=== PATIENT | female | born 1970 | race American Indian/Alaskan Native ===

== ENCOUNTER 2016-11-28 01:00 | Observation (INO) | payer MEDICARE, MEDICAID ==
[2016-11-28 01:06] VITALS: BMI 33.0
[2016-11-28] MEDS ORDERED: HYDROmorphone 2 mg/ml ISec IM STA (01:14)
--- NOTE | 2016-11-28 01:38 | ED PDOC ---
Arrival/HPI - General Chief Complaint: Hip Pain Time Seen by Provider: 11/28/16 01:01 Historian: Patient - History of Present Illness Narrative History of Present Illness (Text): 11/28/16 01:34 Lisa Umaña is a 46 year old female who presents to the emergency department complaining of right hip pain following mechanical fall 3 days ago. States that she tripped and fell backward landing on right side of her back. Patient was able to bear weight on right leg and ambulate after the fall. Denies any head trauma or loss of consciousness. Denies any fever, chills, headache, dizziness, weakness/numbness to extremity, nausea, vomiting, diarrhea, urinary symptoms or any other complaints at this time. Time/Duration: Other (3 days prior ) Symptom Onset: Sudden Symptom Course: Unchanged Activities at Onset: Significant Context: Tripped Past Medical History - Provider Review Nursing Documentation Reviewed: Yes - Infectious Disease Hx of Infectious Diseases: None - Tetanus Immunization Tetanus Immunization: Unknown - Reproductive Menopause: Yes - Cardiac Hx Cardiac Disorders: No - Pulmonary Hx Respiratory Disorders: Yes Hx Asthma: Yes Hx Bronchitis: Yes - Neurological Hx Neurological Disorder: Yes Hx Seizures: Yes - HEENT Hx HEENT Disorder: No - Renal Hx Renal Disorder: No - Endocrine/Metabolic Hx Endocrine Disorders: No - Hematological/Oncological Hx Blood Disorders: Yes - Integumentary Hx Dermatological Disorder: No - Musculoskeletal/Rheumatological Hx Falls: No - Gastrointestinal Hx Gastrointestinal Disorders: Yes Hx Irritable Bowel: Yes - Genitourinary/Gynecological Hx Genitourinary Disorders: No Hx Reproductive Disorders: No - Psychiatric Hx Psychophysiologic Disorder: No Hx Substance Use: Yes (marijuana) - Surgical History Hx Section: Yes - Anesthesia Hx Anesthesia: Yes - Suicidal Assessment Feels Threatened In Home Enviroment: No Family/Social History - Physician Review Nursing Documentation Reviewed: Yes Family/Social History: No Known Family HX Smoking Status: Former Smoker Hx Alcohol Use: No Hx Substance Use: Yes (marijuana) Substance used: marijuiana Allergies/Home Meds Allergies/Adverse Reactions: Allergies No Known Allergies Allergy (Verified 07/04/16 21:23) Home Medications: Home Meds Medication Instructions Recorded Confirmed Darunavir Ethanolate [Prezista] 600 mg PO BID 08/24/14 11/28/16 Ranitidine HCl 150 mg PO BID 08/24/14 11/28/16 Valacyclovir HCl [Valacyclovir] 1 gm PO DAILY 08/24/14 11/28/16 Raltegravir Potassium [Isentress] 400 mg PO BID 05/30/16 11/28/16 Ritonavir [Norvir] 100 mg PO BID 05/30/16 11/28/16 levETIRAcetam [Keppra] 500 mg PO BID 05/30/16 11/28/16 Cyclobenzaprine [Cyclobenzaprine 10 mg PO BID 11/28/16 11/28/16 HCl] Meloxicam [Mobic] 15 mg PO DAILY 11/28/16 11/28/16 Montelukast [Singulair] 10 mg PO DAILY 11/28/16 11/28/16 Review of Systems - Physician Review All systems were reviewed & negative as marked: Yes - Review of Systems Constitutional: Normal. absent: Fatigue, Fevers Respiratory: Normal. absent: SOB, Cough, Sputum Cardiovascular: Normal. absent: Chest Pain Gastrointestinal: Normal. absent: Abdominal Pain, Diarrhea, Nausea, Vomiting Musculoskeletal: Other (right hip pain ). absent: Back Pain, Neck Pain Neurological: Normal. absent: Headache, Dizziness Psychiatric: Normal Physical Exam Vital Signs Temp Pulse Resp BP Pulse Ox 11/28/16 05:21 75 16 110/74 98 11/28/16 03:50 78 16 118/73 99 11/28/16 01:06 98.4 F 73 20 127/58 L 100 Medical Decision Making ED Course and Treatment: 11/28/16 01:39 Impression: A 46 year old female who presents to the emergency department complaining of right hip pain following mechanical fall 3 days ago. Plan: -- CT lower extremity -- Dilaudid -- Reassess and disposition Progress Notes: 11/28/16 03:05 CT Right Lower Extremity results reviewed: FINDINGS: Bones/joints: Multiple poorly demarcated foci of decreased attenuation are identified within the posterior lateral margin of the femoral head, findings suggesting avascular necrosis, without collapse. No acute fracture. No dislocation. Soft tissues: Unremarkable. IMPRESSION: Findings suggesting avascular necrosis, without collapse, as detailed above. No acute fracture. 11/28/16 03:06\ Case discussed with Dr. Palacio who is aware and agrees with the plan to observe patient at med/surg for aseptic necrosis of right hip. Accepts patient under service with on consult. - Lab Interpretations I have reviewed the lab results: Yes - RAD Interpretation Radiology Orders: 11/28/16 01:15 EXT LOWER W/O CONTRAST RIGHT [CT] Stat Dry Chain Worker: Radiologist - Medication Orders Current Medication Orders: Discontinued Medications Albuterol/Ipratropium (Duoneb 3 Mg/0.5 Mg (3 Ml) Ud) 3 ml IH [id number] [facility] Last Admin: 11/28/16 13:56 Dose: 3 ml Alprazolam (Xanax) 0.25 mg PO BID [facility] PRN Reason: Protocol Stop: 12/05/16 10:01 Last Admin: 11/28/16 17:58 Dose: 0.25 mg Budesonide (Pulmicort Respules) 0.25 mg IH [id number] [facility] Famotidine (Pepcid) 20 mg PO BID [facility] Famotidine (Pepcid) 40 mg PO HS [facility] Hydrochlorothiazide (Hydrodiuril) 25 mg PO DAILY [facility] Last Admin: 11/28/16 11:15 Dose: 25 mg Hydromorphone HCl (Dilaudid) 2 mg IM STAT STA Stop: 11/28/16 01:15 Last Admin: 11/28/16 01:24 Dose: 2 mg Re-Assess: [facility] Pain Assessment Document 11/28/16 02:24 YP (Rec: 11/28/16 03:33 [id number] [id number]) Pain Reassessment Is this a pain reassessment? Yes Sleep Is patient sleeping during reassessment? No Presence of Pain Presence of Pain Yes Hydromorphone HCl (Dilaudid) 2 mg IVP STAT STA Stop: 11/28/16 05:01 Last Admin: 11/28/16 05:06 Dose: 2 mg Hydromorphone HCl (Dilaudid) 0.5 mg IVP Q4H PRN PRN Reason: Pain, Mild (1-3) Ipratropium Raymond (Atrovent) 0.5 mg IH [id number] PRN PRN Reason: Shortness of Breath Levetiracetam (Keppra) 500 mg PO BID [facility] Last Admin: 11/28/16 17:58 Dose: 500 mg Montelukast Sodium (Singulair) 10 mg PO DAILY [facility] Last Admin: 11/28/16 11:15 Dose: 10 mg Darunavir Ethanolate [Prezista] 600 Mg (Home Med) 600 mg PO BID [facility] Last Admin: 11/28/16 18:00 Dose: Oxycodone/Acetaminophen (Percocet 5/325 Mg Tab) 1 tab PO Q4H PRN PRN Reason: Pain, moderate (4-7) Stop: 12/01/16 02:59 Last Admin: 11/28/16 08:36 Dose: 1 tab Re-Assess: COLIN Pain Assessment Document 11/28/16 09:36 DSZ (Rec: 11/28/16 10:48 DSZ [id number]) Pain Reassessment Is this a pain reassessment? Yes Sleep Is patient sleeping during reassessment? No Presence of Pain Presence of Pain Yes Pain Scale Used Pain Scale Used Numeric Location Left, Right or Bilateral Right Pain Location Body Site Thigh Description Description Constant Intensity of Pain at present 4 Acceptable Level of Pain 4 Pain Behavior Withdrawal from Touch Aggravating Factors Contant Alleviating Factors/Management Medication Techniques Alleviating Factors Medication Potassium Chloride (K-Dur 20 Meq Er Tab) 40 meq PO STAT STA Stop: 11/28/16 05:11 Last Admin: 11/28/16 05:20 Dose: 40 meq Raltegravir (Isentress) 400 mg PO BID [facility] Last Admin: 11/28/16 17:58 Dose: 400 mg Ritonavir (Norvir) 100 mg PO BID [facility] Last Admin: 11/28/16 17:58 Dose: 100 mg Tramadol HCl (Ultram) 50 mg PO Q6H PRN PRN Reason: moderate to severe pain Valacyclovir HCl (Valtrex) 1 gm PO DAILY [facility] PRN Reason: Protocol Last Admin: 11/28/16 11:15 Dose: 1 gm - Scribe Statement The provider has reviewed the documentation as recorded by the Dinesh Bledsoe Provider Attestation: Provider Scribe Attestation: All medical record entries made by the iDnesh were at my direction and personally dictated by me. I have reviewed the chart and agree that the record accurately reflects my personal performance of the history, physical exam, medical decision making, and the department course for this patient. I have also personally directed, reviewed, and agree with the discharge instructions and disposition. Disposition/Present on Arrival - Present on Arrival Any Indicators Present on Arrival: No History of DVT/PE: No History of Uncontrolled Diabetes: No Urinary Catheter: No History of Decub. Ulcer: No History Surgical Site Infection Following: None - Disposition Have Diagnosis and Disposition been Completed?: Yes Diagnosis: Avascular necrosis of bone of hip Disposition: HOSPITALIZED Disposition Time: 05:00 Condition: GOOD
--- NOTE | 2016-11-28 02:30 | CT ---
EXAM: CT Right Lower Extremity Without Intravenous Contrast, Hip CLINICAL HISTORY: 46 years old, female; Pain; Hip; Right; Additional info: Rt hip pain TECHNIQUE: Axial computed tomography images of the right hip without intravenous contrast. This CT exam was performed using one or more of the following dose reduction techniques: automated exposure control, adjustment of the mA and/or kV according to patient size, and/or use of iterative reconstruction technique. Coronal and sagittal reformatted images were created and reviewed. COMPARISON: MR - ANKLE W/ W/O CONTRAST [facility] 01/04/2016 8:36:46 AM FINDINGS: Bones/joints: Multiple poorly demarcated foci of decreased attenuation are identified within the posterior lateral margin of the femoral head, findings suggesting avascular necrosis, without collapse. No acute fracture. No dislocation. Soft tissues: Unremarkable. IMPRESSION: Findings suggesting avascular necrosis, without collapse, as detailed above. No acute fracture.
[2016-11-28] MEDS ORDERED: Oxycodone/Acetaminophen 5/325 mg Tab PO PRN (02:58)
[2016-11-28 03:51] LABS: BASO # 0.01 K/mm3 (0.0-2.0); BASO % 0.1 % (0.0-3.0); EOS # 0.2 (0.0-0.7); EOS % 2.2 % (1.5-5.0); GRAN # 7.76 (1.4-6.5); GRAN % 79.4 % (50.0-68.0); HEMOGLOBIN 10.4 gm/dL (12.0-16.0); LYMPH # 1.1 (1.2-3.4); LYMPH % 11.7 % (22.0-35.0); MEAN CELL VOLUME 74.4 fL (80.0-105.0); MEAN CORPUSCULAR HGB CONC 32.2 g/dl (31.0-37.0); MEAN PLATELET VOLUME 9.5 fl (7.0-11.0); MONO # 0.6 (0.1-0.6); MONO % 6.6 % (1.0-6.0); PLATELET COUNT 323 10^3/uL (120.0-450.0); RBC 4.34 10^6/uL (3.5-6.1); RED CELL DISTRIBUTION WIDTH 16.3 % (11.5-14.5); WHITE BLOOD COUNT 9.8 10^3/ul (4.5-11.0)
[2016-11-28 04:53] LABS: ALB/GLOB RATIO 1.1 (1.1-1.8); ALBUMIN 4.2 g/dL (3.0-4.8); ALT/SGPT 21 U/L (7-56); AST/SGOT 24 U/L (15-39); BLOOD UREA NITROGEN 8 mg/dL (7-21); CALCIUM 9.3 mg/dL (8.4-10.5); GFR AFRICAN-AMERICAN > 60; GFR NON-AFRICAN AMERICAN > 60
[2016-11-28] MEDS ORDERED: HYDROmorphone 2 mg/ml ISec IVP STA (05:00)
[2016-11-28] MEDS ORDERED: Potassium Chloride 20 mEq ER Tab PO STA (05:10)
[2016-11-28 06:16] VITALS: PULSE 70; RESP 20; TEMP 98.2
[2016-11-28] MEDS ORDERED: Albuterol HFA 90 mcg/actuation (8 g) IH PRN (08:47)
[2016-11-28] MEDS ORDERED: Ipratropium 0.02% Inhal Soln (0.5 mg/2.5 ml) UD IH PRN (08:47)
[2016-11-28] MEDS ORDERED: HYDROmorphone 0.5 mg/0.5 ml ISec IVP PRN (08:54)
[2016-11-28 09:29] VITALS: BP 122/70; O2SAT 100
[2016-11-28] MEDS: DARUNAVIR ETHANOLATE 600 MG PO SCH ×2 (10:58→18:00)
--- NOTE | 2016-11-28 13:12 | RAD ---
PROCEDURE: Radiographs of the pelvis and right hip joint INDICATION: COMPARISON: CT scan performed the same day FINDINGS: AP view of the pelvis and AP and frog lateral views of the right hip were obtained. There is mild flattening of the right femoral head with subarticular sclerosis and subarticular cystic changes. There is moderate flattening and deformity in the left femoral head with subarticular sclerosis and cystic changes. There is also mild degenerative osteoarthrosis in both hip joints. The periarticular soft tissues are unremarkable. 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
[2016-11-28] MEDS ORDERED: Albuterol-Ipratrop 3 mg / 0.5 (3 ml) UD IH SCH (14:00)
[2016-11-28] MEDS ORDERED: Budesonide 0.25 mg/2 ml Inhal Susp UD IH SCH (20:00)
--- NOTE | 2016-11-29 10:48 | CP.PCM.HP ---
History of Present Illness - History of Present Illness History of Present Illness: dictating h/p for 11/28/16 Lisa Umaña is a 46 year old female who presents to the emergency department complaining of right hip pain following mechanical fall 3 days ago. States that she tripped and fell backward landing on right side of her back. Patient was able to bear weight on right leg and ambulate after the fall. Denies any head trauma or loss of consciousness. Denies any fever, chills, headache, dizziness, weakness/numbness to extremity, nausea, vomiting, diarrhea, urinary symptoms or any other complaints at this time. Present on Admission - Present on Admission Any Indicators Present on Admission: No Review of Systems - Constitutional Constitutional: As Per HPI - EENT Eyes: As Per HPI Ears: As Per HPI Nose/Mouth/Throat: As Per HPI - Breasts Breasts: As Per HPI - Cardiovascular Cardiovascular: As Per HPI - Respiratory Respiratory: As Per HPI - Gastrointestinal Gastrointestinal: As Per HPI - Musculoskeletal Musculoskeletal: Abnormal Gait, Arthralgias, Limited Range of Motion - Integumentary Integumentary: As Per HPI - Neurological Neurological: As Per HPI - Psychiatric Psychiatric: As Per HPI - Endocrine Endocrine: As Per HPI - Hematologic/Lymphatic Hematologic: As Per HPI Past Patient History - Infectious Disease Hx of Infectious Diseases: None - Tetanus Immunizations Tetanus Immunization: Unknown - Past Social History Smoking Status: Never Smoked - CARDIAC Hx Cardiac Disorders: No - PULMONARY Hx Respiratory Disorders: Yes Hx Asthma: Yes Hx Bronchitis: Yes - NEUROLOGICAL Hx Neurological Disorder: Yes Hx Seizures: Yes - HEENT Hx HEENT Problems: No - RENAL Hx Chronic Kidney Disease: No - ENDOCRINE/METABOLIC Hx Endocrine Disorders: No - HEMATOLOGICAL/ONCOLOGICAL Hx Blood Disorders: Yes - INTEGUMENTARY Hx Dermatological Problems: No - MUSCULOSKELETAL/RHEUMATOLOGICAL Hx Falls: Yes - GASTROINTESTINAL Hx Gastrointestinal Disorders: Yes - GENITOURINARY/GYNECOLOGICAL Hx Genitourinary Disorders: No - PSYCHIATRIC Hx Psychophysiologic Disorder: No Hx Substance Use: Yes (smoke marijuana) - SURGICAL HISTORY Hx Surgeries: Yes - ANESTHESIA Hx Anesthesia: Yes Meds Allergies/Adverse Reactions: Allergies Allergy/AdvReac Type Severity Reaction Status Date / Time No Known Allergies Allergy Verified 07/04/16 21:23 Physical Exam - Constitutional Appears: Well - Head Exam Head Exam: ATRAUMATIC, NORMAL INSPECTION, NORMOCEPHALIC - Eye Exam Eye Exam: EOMI, Normal appearance, PERRL Pupil Exam: NORMAL ACCOMODATION, PERRL - ENT Exam ENT Exam: Mucous Membranes Moist, Normal Exam - Neck Exam Neck exam: Positive for: Normal Inspection - Respiratory Exam Respiratory Exam: Clear to Auscultation Bilateral, NORMAL BREATHING PATTERN - Cardiovascular Exam Cardiovascular Exam: REGULAR RHYTHM - GI/Abdominal Exam GI & Abdominal Exam: Normal Bowel Sounds, Soft. absent: Tenderness - Rectal Exam Rectal Exam: NORMAL INSPECTION - Exam Exam: Circumcision, NORMAL INSPECTION External exam: NORMAL EXTERNAL EXAM Speculum exam: NORMAL SPECULUM EXAM Bimanual exam: NORMAL BIMANUAL EXAM - Extremities Exam Extremities exam: Positive for: normal inspection Additional comments: rt hip rom decrease , area tender , connot bear wt - Back Exam Back exam: NORMAL INSPECTION - Neurological Exam Neurological exam: Alert, CN II-XII Intact, Normal Gait, Oriented x3, Reflexes Normal - Psychiatric Exam Psychiatric exam: Normal Affect, Normal Mood - Skin Skin Exam: Dry, Intact, Normal Color, Warm Results - Vital Signs Recent Vital Signs: Last Vital Signs Temp 98.2 F 11/28/16 07:30 Pulse 70 11/28/16 07:30 Resp 20 11/28/16 07:30 BP 122/70 11/28/16 07:30 Pulse Ox 100 11/28/16 07:30 - Labs Result Diagrams: 11/28/16 03:40 11/28/16 04:11 Labs: Laboratory Results - last 24 hr 11/28/16 10:00 Magnesium 1.9 Assessment & Plan (1) HIV (human immunodeficiency virus infection) Status: Acute (2) HIV (human immunodeficiency virus infection) Status: Acute (3) Avascular necrosis of bone of hip Assessment and Plan: rt hip Status: Acute (4) Fall (on) (from) other stairs and steps, initial encounter Status: Acute - Assessment and Plan (Free Text) Assessment: Lisa Umaña is a 46 year old female who presents to the emergency department complaining of right hip pain following mechanical fall 3 days ago. States that she tripped and fell backward landing on right side of her back. Patient was able to bear weight on right leg and ambulate after the fall. Denies any head trauma or loss of consciousness. Denies any fever, chills, headache, dizziness, weakness/numbness to extremity, nausea, vomiting, diarrhea, urinary symptoms or any other complaints at this time. Plan: dr Douglas ortho consult called , no surgery as per ortho .pt need good pt . so pt av. and treatment called , pt want to go ama , education done in the presence of boy friend , pt informed , she can fall and can have fractures , but still she want to go home AMA .f/u pcp , pt and ortho as out pt
--- NOTE | 2016-12-01 22:09 | CP.PCM.DIS ---
Provider - Provider Date of Admission: 11/28/16 02:57 Attending physician: Madie Palacio MD Primary care physician: Madie Palacio MD Time Spent in preparation of Discharge (in minutes): 1 Diagnosis - Discharge Diagnosis (1) HIV (human immunodeficiency virus infection) Status: Acute (2) HIV (human immunodeficiency virus infection) Status: Acute (3) Avascular necrosis of bone of hip Status: Acute (4) Fall (on) (from) other stairs and steps, initial encounter Status: Acute Hospital Course - Lab Results Lab Results: Most Recent Lab Values WBC 9.8 10^3/ul (4.5-11.0) D 11/28/16 03:40 RBC 4.34 10^6/uL (3.5-6.1) 11/28/16 03:40 Hgb 10.4 gm/dL (12.0-16.0) L 11/28/16 03:40 Hct 32.3 % (36.0-48.0) L 11/28/16 03:40 MCV 74.4 fL (80.0-105.0) L 11/28/16 03:40 MCH 24.0 pg (25.0-35.0) L 11/28/16 03:40 MCHC 32.2 g/dl (31.0-37.0) 11/28/16 03:40 RDW 16.3 % (11.5-14.5) H 11/28/16 03:40 Plt Count 323 10^3/uL (120.0-450.0) 11/28/16 03:40 MPV 9.5 fl (7.0-11.0) 11/28/16 03:40 Gran % 79.4 % (50.0-68.0) H 11/28/16 03:40 Lymph % (Auto) 11.7 % (22.0-35.0) L 11/28/16 03:40 Page % (Auto) 6.6 % (1.0-6.0) H 11/28/16 03:40 Eos % (Auto) 2.2 % (1.5-5.0) 11/28/16 03:40 Baso % (Auto) 0.1 % (0.0-3.0) 11/28/16 03:40 Gran # 7.76 (1.4-6.5) H 11/28/16 03:40 Lymph # 1.1 (1.2-3.4) L 11/28/16 03:40 Page # 0.6 (0.1-0.6) 11/28/16 03:40 Eos # 0.2 (0.0-0.7) 11/28/16 03:40 Baso # 0.01 K/mm3 (0.0-2.0) 11/28/16 03:40 Sodium 141 mmol/L (132-148) 11/28/16 04:11 Potassium 3.3 mmol/L (3.6-5.0) L 11/28/16 04:11 Chloride 103 mmol/L (95-110) 11/28/16 04:11 Carbon Dioxide 27 mmol/L (21-33) 11/28/16 04:11 Anion Gap 14 (10-20) 11/28/16 04:11 BUN 8 mg/dL (7-21) 11/28/16 04:11 Creatinine 0.8 mg/dL (0.5-1.4) 11/28/16 04:11 Est GFR ( Amer) > 60 11/28/16 04:11 Est GFR (Non-Af Amer) > 60 11/28/16 04:11 Random Glucose 132 mg/dL (70-110) H 11/28/16 04:11 Calcium 9.3 mg/dL (8.4-10.5) 11/28/16 04:11 Magnesium 1.9 mg/dL (1.7-2.2) 11/28/16 10:00 Total Bilirubin 0.4 mg/dL (0.2-1.3) 11/28/16 04:11 AST 24 U/L (15-39) 11/28/16 04:11 ALT 21 U/L (7-56) 11/28/16 04:11 Alkaline Phosphatase 163 U/L (38-133) H 11/28/16 04:11 Total Protein 7.9 g/dL (5.8-8.3) 11/28/16 04:11 Albumin 4.2 g/dL (3.0-4.8) 11/28/16 04:11 Globulin 3.8 gm/dL 11/28/16 04:11 Albumin/Globulin Ratio 1.1 (1.1-1.8) 11/28/16 04:11 - Hospital Course Hospital Course: pt left AMA same day , see my H/P Discharge Exam - Head Exam Head Exam: ATRAUMATIC, NORMAL INSPECTION, NORMOCEPHALIC Discharge Plan - Follow Up Plan Condition: GOOD Disposition: AGAINST MEDICAL ADVICE Instructions: Hypokalemia (GEN), Chronic Pain (GEN), HIV Infection (GEN), Opioid Pain Management (DC), Hip Pain (GEN) Referrals: Madie Palacio MD [Primary Care Provider] - Herberth Starr MD [Staff Provider] -
== END 2016-11-28 18:32 | disposition left against medical advice (07) ==
LOC: ED 01:00 → ERH 02:57 → 5RSO 05:46
PROVIDERS: ADMIT Internal Medicine; ATTEND Internal Medicine
DX: M87.9 Osteonecrosis, unspecified (principal); W01.0XXA Fall on same level from slipping, tripping and stumbling without subsequent striking against object, initial encounter; Z21 Asymptomatic human immunodeficiency virus [HIV] infection status; J45.909 Unspecified asthma, uncomplicated; K58.9 Irritable bowel syndrome, unspecified; Z79.1 Long term (current) use of non-steroidal anti-inflammatories (NSAID); Z79.899 Other long term (current) drug therapy; R56.9 Unspecified convulsions; F12.90 Cannabis use, unspecified, uncomplicated; Z87.891 Personal history of nicotine dependence; Y92.9 Unspecified place or not applicable
CPT/HCPCS: 73502; 73700; 80053; 83735; 85025; 94640; 96372; 96374; 99284; G0378; J1170

== ENCOUNTER 2018-06-03 10:17 | Emergency (ER) | payer MEDICARE, MEDICAID ==
[2018-06-03 10:46] VITALS: BMI 29.3
[2018-06-03 10:52] VITALS: PULSE 72; RESP 18; TEMP 98.4; O2SAT 98
[2018-06-03 10:53] VITALS: BP 130/81
--- NOTE | 2018-06-03 11:18 | ED PDOC ---
Arrival/HPI - General Chief Complaint: Cough, Cold, Congestion Time Seen by Provider: 06/03/18 10:51 Historian: Patient - History of Present Illness Narrative History of Present Illness (Text): 06/03/18 11:22 A 48 year old female, whose past medical history includes asthma, presents to the emergency department complaining of shortness of breath starting 04:00 last night. Patient reports also experiencing chest tightness and consistent cough. Notes yesterday feeling normal, however upon waking up at 04:00 began experiencing symptoms. She mentions she usually takes Aspirin prior to going to sleep however last night she did not do so. Upon waking up, she took Aspirin, felt some relief, and went back to sleep. However patient awoke again with the same symptoms. Also, patient mentions she had a cold 3 weeks ago and was presc ribed Z-pack and prednisone for asthma. currently she is concerned symptoms may be due to asthma exacerbation however is uncertain and decided to come to the ER for evaluation. Patient denies any chest pain, bilateral leg swelling, or any other complaints at this time. PMD: Dr. Palacio Past Medical History - Provider Review Nursing Documentation Reviewed: Yes - Infectious Disease Hx of Infectious Diseases: None - Tetanus Immunization Tetanus Immunization: Unknown - Cardiac Hx Hypertension: Yes - Pulmonary Hx Respiratory Disorders: Yes Hx Asthma: Yes Hx Bronchitis: Yes - Neurological Hx Neurological Disorder: Yes Hx Seizures: Yes - HEENT Hx HEENT Disorder: No - Renal Hx Renal Disorder: No - Endocrine/Metabolic Hx Endocrine Disorders: No - Hematological/Oncological Hx Blood Disorders: Yes - Integumentary Hx Dermatological Disorder: No - Musculoskeletal/Rheumatological Hx Falls: No - Gastrointestinal Hx Gastrointestinal Disorders: Yes Hx Irritable Bowel: Yes - Genitourinary/Gynecological Hx Genitourinary Disorders: No Hx Reproductive Disorders: No - Psychiatric Hx Psychophysiologic Disorder: No Hx Substance Use: Yes (marijuana) - Surgical History Hx Section: Yes - Anesthesia Hx Anesthesia: Yes - Suicidal Assessment Feels Threatened In Home Enviroment: No Family/Social History - Physician Review Nursing Documentation Reviewed: Yes Family/Social History: No Known Family HX Smoking Status: Former Smoker Hx Alcohol Use: No Hx Substance Use: Yes (marijuana) Substance used: marijuiana Allergies/Home Meds Allergies/Adverse Reactions: Allergies No Known Allergies Allergy (Verified 07/04/16 21:23) Home Medications: Home Meds Medication Instructions Recorded Confirmed RX: Darunavir Ethanolate [Prezista] 600 mg PO BID 08/24/14 11/28/16 RX: Ranitidine HCl 150 mg PO BID 08/24/14 11/28/16 RX: Valacyclovir HCl [Valacyclovir] 1 gm PO DAILY 08/24/14 11/28/16 Raltegravir Potassium [Isentress] 400 mg PO BID 05/30/16 11/28/16 Ritonavir [Norvir] 100 mg PO BID 05/30/16 11/28/16 levETIRAcetam [Keppra] 500 mg PO BID 05/30/16 11/28/16 Cyclobenzaprine [Cyclobenzaprine 10 mg PO BID 11/28/16 11/28/16 HCl] Meloxicam [Mobic] 15 mg PO DAILY 11/28/16 11/28/16 Montelukast [Singulair] 10 mg PO DAILY 11/28/16 11/28/16 Review of Systems - Physician Review All systems were reviewed & negative as marked: Yes - Review of Systems Respiratory: SOB, Cough, Wheezing Cardiovascular: absent: Chest Pain (chest tightness) Musculoskeletal: Other (no bilateral leg swelling) Physical Exam - Physical Exam Narrative Physical Exam (Text): Gen: VS reviewed, alert, well developed, well nourished, nontoxic, mild distress. ENT: normal pharynx. Eye: EOMI, PERRL. Neck: no JVD, supple, no adenopathy. CV: regular rate, regular rhythm, no rubs, no murmur, no gallops, S1, S2, pulses equal and strong. Pulm: no distress, clear to auscultation, scant bilateral expiratory wheezing, no rhonchi, breath sounds equal, good air exchange bilaterally, no rales. Abd: soft, nontender, no guarding, no rebound, no rigidity, normal bowel sounds. Ext: no edema. Skin: good color, no rash, no cyanosis. Psych: responds appropriately to questions, normal affect. Neuro: oriented x 3, CN2-12 intact grossly, motor intact, sensation intact. Vital Signs Reviewed: Yes Vital Signs Temp Pulse Resp BP Pulse Ox 06/03/18 10:48 98.4 F 72 18 130/81 98 Temperature: Afebrile Blood Pressure: Normal Pulse: Regular Respiratory Rate: Normal Appearance: Positive for: Well-Appearing, Non-Toxic, Comfortable Pain Distress: None Mental Status: Positive for: Alert and Oriented X 3 Medical Decision Making ED Course and Treatment: 06/03/18 11:22 Impression: 48 year old female with shortness of breath, consistent cough, and chest tightness. Plan: -- Labs -- Prednisone -- Reassess and disposition Progress Notes: 06/03/18 11:56 patient was seen for chest tightness, shortness of breath and wheezing with a hx of asthma. clinical exam consistent with mild asthma exacerbation. i explained to the patient my initial plan but the daughter at bedside stated "well what about her heart". this question appeared to be in conjunction with the fact that the patient had an ekg in the ED prior to my evaluation. i explained to the patient and the daughter that if there was a concern for "her heart" that bloodwork should be done and admission to the hospital to get a full evaluation. initially, patient agreed. afterwards, the patient came to talk to me in confidence that she only wanted to be treated for her asthma and that she wasnt having "chest pain" "it was just tightness". i explained to the patient that her symptoms were consistent with a asthma exacerbation and that we should treat in the ED. i also explained that her ekg is consistent with the ekg she showed me from previous medical evaluation. i explained to the patient that she should sort out with her daughter if she wants to get bloodwork of not and to let me know. patient left a clear impression that she only wanted to get the prednisone here and that s he doesnt want to stay for full evaluation. the patient did not inform me of her co-decision with her daughter which left the impression that she would sign out ama. i went to the patient to ask about her decision to stay and test or to leave ama. the patient appeared annoyed as if we never discussed her leaving ama and refused to sign paperwork. i attempted to explain again the chain of events to the patient and the family but appeared to want to listen to my explanation. at this time, the patient has gone back and forth about ED evaluation vs signing out against medical advice. 06/03/18 12:05 - Scribe Statement The provider has reviewed the documentation as recorded by the Dinesh Becerra Provider Scribe Attestation: All medical record entries made by the Scribe were at my direction and personally dictated by me. I have reviewed the chart and agree that the record accurately reflects my personal performance of the history, physical exam, medical decision making, and the department course for this patient. I have also personally directed, reviewed, and agree with the discharge instructions and disposition. Disposition/Present on Arrival - Present on Arrival Any Indicators Present on Arrival: No History of DVT/PE: No History of Uncontrolled Diabetes: No Urinary Catheter: No History of Decub. Ulcer: No History Surgical Site Infection Following: None - Disposition Have Diagnosis and Disposition been Completed?: Yes Diagnosis: Asthma Disposition: AGAINST MEDICAL ADVICE Disposition Time: 20:35 Patient Plan: Discharge Condition: STABLE Discharge Instructions (ExitCare): Asthma, Adult (DC) Additional Instructions: return for any new or worsening symptoms. Prescriptions: RX: Prednisone [Deltasone] 20 mg PO DAILY 5 Days #10 tablet Referrals: Madie Palacio MD [Primary Care Provider] - Follow up with primary Forms: [employer] ([place]izen [place])
--- NOTE | 2018-06-04 11:11 | CARD ---
APPROVED REPORT Date of service: 06/03/2018 EKG Measurement Heart [id number] <Conclusion> Normal sinus rhythm with sinus arrhythmia Right bundle branch block Septal infarct, age undetermined Abnormal ECG
== END 2018-06-03 12:00 | disposition left against medical advice (07) ==
LOC: ED 10:17
DX: J45.909 Unspecified asthma, uncomplicated (principal); Z87.891 Personal history of nicotine dependence; I10 Essential (primary) hypertension

== ENCOUNTER 2018-07-17 09:49 | Outpatient (CLI) | payer MEDICARE, MEDICAID | END 2018-07-17 09:50 | disposition home or self-care (01) | LOC: RAD 09:49 ==

== ENCOUNTER 2018-10-09 15:04 | Emergency (ER) | payer MEDICARE, MEDICAID ==
[2018-10-09 15:04] VITALS: BMI 29.3
[2018-10-09 15:28] VITALS: RESP 18; TEMP 98.3
--- NOTE | 2018-10-09 15:44 | ED PDOC ---
Arrival/HPI - General Chief Complaint: Lower Extremity Problem/Injury Time Seen by Provider: 10/09/18 15:09 Historian: Patient - History of Present Illness Narrative History of Present Illness (Text): 10/09/18 15:45 48 year old female, with a past medical history of asthma, who presents to the emergency department with chief complaint of swelling in bilateral legs. Patient reports she had a hip replacement on september 24, and states her left leg began swelling afterwards. She reports her doctor gave her water pills for 3 days, and states her right leg began to swell as well. Patient denies any swelling before the surgery. She denies chest pain. Denies shortness of breath. Symptom Onset: Gradual Symptom Course: Unchanged Activities at Onset: Light Context: Home Past Medical History - Provider Review Nursing Documentation Reviewed: Yes - Infectious Disease Hx of Infectious Diseases: None - Tetanus Immunization Tetanus Immunization: Unknown - Cardiac Hx Hypertension: Yes - Pulmonary Hx Respiratory Disorders: Yes Hx Asthma: Yes Hx Bronchitis: Yes - Neurological Hx Neurological Disorder: Yes Hx Seizures: Yes - HEENT Hx HEENT Disorder: No - Renal Hx Renal Disorder: No - Endocrine/Metabolic Hx Endocrine Disorders: No - Hematological/Oncological Hx Blood Disorders: Yes - Integumentary Hx Dermatological Disorder: No - Musculoskeletal/Rheumatological Hx Falls: No - Gastrointestinal Hx Gastrointestinal Disorders: Yes Hx Irritable Bowel: Yes - Genitourinary/Gynecological Hx Genitourinary Disorders: No Hx Reproductive Disorders: No - Psychiatric Hx Psychophysiologic Disorder: No Hx Substance Use: Yes (marijuana) - Surgical History Hx Section: Yes Hx Orthopedic Surgery: Yes (Left hip replacement) - Anesthesia Hx Anesthesia: Yes - Suicidal Assessment Feels Threatened In Home Enviroment: No Family/Social History - Physician Review Nursing Documentation Reviewed: Yes Family/Social History: Unknown Family HX Smoking Status: Former Smoker Hx Alcohol Use: No Hx Substance Use: Yes (marijuana) Substance used: marijuiana Allergies/Home Meds Allergies/Adverse Reactions: Allergies No Known Allergies Allergy (Verified 10/09/18 15:29) Home Medications: Home Meds Medication Instructions Recorded Confirmed Darunavir Ethanolate [Prezista] 600 mg PO BID 08/24/14 10/09/18 Ranitidine HCl 150 mg PO BID 08/24/14 10/09/18 Valacyclovir HCl [Valacyclovir] 1 gm PO DAILY 08/24/14 10/09/18 Raltegravir Potassium [Isentress] 400 mg PO BID 05/30/16 10/09/18 Ritonavir [Norvir] 100 mg PO BID 05/30/16 10/09/18 levETIRAcetam [Keppra] 500 mg PO BID 05/30/16 10/09/18 Cyclobenzaprine [Cyclobenzaprine 10 mg PO BID 11/28/16 10/09/18 HCl] Meloxicam [Mobic] 15 mg PO DAILY 11/28/16 10/09/18 Montelukast [Singulair] 10 mg PO DAILY 11/28/16 10/09/18 Apixaban [Eliquis] 2.5 mg PO BID 10/09/18 10/09/18 Celecoxib [Celebrex] 50 mg PO DAILY 10/09/18 10/09/18 Folic Acid 1 mg PO DAILY 10/09/18 10/09/18 Pregabalin [Lyrica] 50 mg PO BID 10/09/18 10/09/18 Review of Systems - Physician Review All systems were reviewed & negative as marked: Yes - Review of Systems Constitutional: absent: Fevers Respiratory: absent: SOB Cardiovascular: absent: Chest Pain Musculoskeletal: Joint Swelling Physical Exam - Physical Exam Narrative Physical Exam (Text): 10/09/18 15:43 Gen: VS reviewed, alert, well developed, well nourished, nontoxic, mild distress Eye: EOMI, PERRL Neck: no JVD, supple, no adenopathy CV: regular rate, regular rhythm, no rubs,no murmur, S1, S2 Pulm: no distress, clear to auscultation, no wheeze, no rhonchi, breath sounds equal, no rales Abd: soft, nontender, no guarding, no rebound, no rigidity Ext: Pitting edema in bilateral legs, worse on left lower leg. Skin: good color, no rash, no cyanosis Psych: responds appropriately to questions, normal affect Neuro: oriented x3, CN2-12 intact grossly, motor intact, sensation intact Vital Signs Temp Pulse Resp BP Pulse Ox 10/09/18 15:05 98.3 F 98 H 18 113/71 98 Temperature: Afebrile Blood Pressure: Normal Pulse: Regular Respiratory Rate: Normal Medical Decision Making ED Course and Treatment: 10/09/18 15:41 Impression: 48 year old female presents to the emergency department with chief complaint of swelling in bilateral legs. Plan: -- Labs -- Ultrasound lower extremity -- Iv fluids -- Reassess and disposition Prior Visits: Notes and results from previous visits were reviewed. Progress Notes: 10/09/18 17:59 patient seen for bilateral lower extremity edema s/p hip surgery. Us negative for DVt in bilateral lower extremities, labs ok, no other clinical suspicion for acute decomp chf. will emprically start on diuretic and patient has an upcoming appointment with her pcp on sunday. patient appears to understands and is agreeable with plan. - RAD Interpretation Narrative RAD Interpretations (Text): 10/09/18 18:27 Extremity Ultrasound reviewed by radiologist, shows: No sonographic evidence for deep venous thrombosis in the visualized segments of both lower extremities. Limited study, the tibial veins are not adequately seen Radiology Orders: 10/09/18 15:36 DUPLEX LOWER EXTRM VEIN BILAT [US] Stat Database Admin: Radiologist - Scribe Statement The provider has reviewed the documentation as recorded by the Dinesh Garland Provider Scribe Attestation: All medical record entries made by the Scribe were at my direction and personally dictated by me. I have reviewed the chart and agree that the record accurately reflects my personal performance of the history, physical exam, medical decision making, and the department course for this patient. I have also personally directed, reviewed, and agree with the discharge instructions and disposition. Disposition/Present on Arrival - Present on Arrival Any Indicators Present on Arrival: No History of DVT/PE: No History of Uncontrolled Diabetes: No Urinary Catheter: No History of Decub. Ulcer: No History Surgical Site Infection Following: None - Disposition Have Diagnosis and Disposition been Completed?: Yes Diagnosis: Peripheral edema Disposition: HOME/ ROUTINE Disposition Time: 18:01 Patient Plan: Discharge Condition: STABLE Discharge Instructions (ExitCare): Dependent Edema (DC) Additional Instructions: keep your appointment with your primary care doctor. Prescriptions: Furosemide [Lasix] 20 mg PO DAILY 14 Days #14 tab Referrals: Madie Palacio MD [Primary Care Provider] - Follow up with primary Forms: [facility] ([place])
[2018-10-09 15:53] LABS: BASO # 0.01 K/mm3 (0.0-2.0); BASO % 0.1 % (0.0-3.0); EOS # 0.1 (0.0-0.7); EOS % 0.8 % (1.5-5.0); HEMOGLOBIN 9.6 g/dL (12.0-16.0); LYMPH # 1.9 (1.2-3.4); LYMPH % 19.8 % (22.0-35.0); MEAN CELL VOLUME 79.1 fl (80.0-105.0); MEAN CORPUSCULAR HEMOGLOBIN 24.2 pg (25.0-35.0); MEAN CORPUSCULAR HGB CONC 30.6 g/dl (31.0-37.0); MEAN PLATELET VOLUME 8.3 fl (7.0-11.0); MONO # 0.4 (0.1-0.6); RBC 3.97 10^6/uL (3.5-6.1); RED CELL DISTRIBUTION WIDTH 17.2 % (11.5-14.5); WHITE BLOOD COUNT 9.4 10^3/uL (4.5-11.0)
[2018-10-09 16:01] LABS: INR 1.14; PARTIAL THROMBOPLASTIN TIME 40.1 Seconds (26.9-38.3); PROTHROMBIN TIME 12.6 SECONDS (9.4-12.5)
[2018-10-09 16:10] LABS: ALBUMIN 3.8 g/dL (3.0-4.8); ALT/SGPT 34 U/L (7-56); AST/SGOT 26 U/L (14-36); BLOOD UREA NITROGEN 14 mg/dL (7-21); GFR NON-AFRICAN AMERICAN > 60
[2018-10-09 16:21] LABS: B-TYPE NATRIURETIC PEPTIDE 70.1 pg/mL (0-450)
--- NOTE | 2018-10-09 17:13 | US ---
HISTORY: Leg pain and swelling. Evaluate for DVT PHYSICIAN(S): Darci Wang MD. TECHNIQUE: Duplex sonography and color-flow Doppler with graded compression were used to evaluate the deep venous systems of both lower extremities. The tibial veins are not adequately seen FINDINGS: The visualized deep venous systems of both lower extremities are sonographically normal and compressible. Normal wave forms and augmentation are seen. There is no sonographic evidence for deep venous thrombosis in the visualized segments of both lower extremities. IMPRESSION: No sonographic evidence for deep venous thrombosis in the visualized segments of both lower extremities. Limited study, the tibial veins are not adequately seen
[2018-10-09 18:27] VITALS: BP 109/78; PULSE 86; O2SAT 99
== END 2018-10-09 18:32 | disposition home or self-care (01) ==
LOC: ED 15:04
DX: R60.0 Localized edema (principal); I10 Essential (primary) hypertension; Z87.891 Personal history of nicotine dependence; Z96.642 Presence of left artificial hip joint